=== PATIENT | female | born 1975 | race Asian ===

== ENCOUNTER 2016-09-14 09:09 | Emergency (ER) | payer OTHER ==
[~2016-09-14] VITALS: Ht 162.6 cm; Wt 61.2 kg
[2016-09-14 09:18] VITALS: BP 105/69
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
[2016-09-14] MEDS ORDERED: DOXYCYCLINE HY100 M4 PO (09:51)
[2016-09-14] MEDS ORDERED: BROMFED DM COU118 M1 PO (09:51)
[2016-09-14] MEDS ORDERED: PROVENTIL HFA6.7 GM INH (09:51)
[2016-09-14] MEDS ORDERED: DELTASONE20 MG PO (09:51)
== END 2016-09-14 10:28 ==
LOC: ERH 09:09
DX: J40 Bronchitis, not specified as acute or chronic (principal); F17.210 Nicotine dependence, cigarettes, uncomplicated
CPT/HCPCS: 1263

== ENCOUNTER 2016-09-24 16:05 | Emergency (ER) | payer OTHER ==
[~2016-09-24] VITALS: Ht 162.6 cm; Wt 53.5 kg
[~2016-09-24 16:05] MED LIST: BROMFED DM COU118 M1 PO; DELTASONE20 MG PO; DOXYCYCLINE HY100 M4 PO; PROVENTIL HFA6.7 GM INH
[2016-09-24 16:08] VITALS: BP 114/82
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
[2016-09-24] MEDS ORDERED: GABAPENTIN300 M2 PO (16:42)
[2016-09-24] MEDS ORDERED: BENZONATATE100 M1 PO (16:43)
[2016-09-24] MEDS ORDERED: TRIAMCINOLONE A15 G4 TOP (16:43)
[2016-09-24] MEDS ORDERED: VITAMIN B COMP1 EACH PO (16:43)
[2016-09-24] MEDS ORDERED: PANTOPRAZOLE SO20 M1 PO (16:43)
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
== END 2016-09-24 18:03 ==
LOC: ERH 16:05
DX: S09.90XA Unspecified injury of head, initial encounter (principal); S80.01XA Contusion of right knee, initial encounter; S05.12XA Contusion of eyeball and orbital tissues, left eye, initial encounter; Y04.8XXA Assault by other bodily force, initial encounter
CPT/HCPCS: 73562-RT; 81025

== ENCOUNTER 2018-01-24 10:53 | Emergency (ER) | payer OTHER ==
[~2018-01-24] VITALS: Ht 162.6 cm; Wt 54.4 kg
[~2018-01-24 10:53] MED LIST changes: +BENTYL10 M1 PO; +BENZONATATE100 M1 PO; +GABAPENTIN300 M2 PO; +PANTOPRAZOLE SO20 M1 PO; +TRIAMCINOLONE A15 G4 TOP; +VITAMIN B COMP1 EACH PO; +ZOFRAN ODT4 M1 SL
[2018-01-24 10:56] VITALS: BP 113/71
[2018-01-24] MEDS ORDERED: ERYTHROMYCIN1 GM OPH (11:44)
--- NOTE | 2018-01-24 11:44 | ED GENERAL ADULT ---
History of Present Illness General Chief Complaint: Eye Problems Stated Complaint: LEFT EYE STY? "WANT TO MAKE SURE ITS NOT PINK EYE" Source: patient Exam Limitations: no limitations Vital Signs & Intake/Output Vital Signs & Intake/Output Vital Signs Date Time Temp Pulse Resp B/P B/P Pulse O2 O2 Flow FiO2 Mean Ox Delivery Rate 01/24 1134 98 Room Air 01/24 1056 97.5 86 15 113/71 97 Room Air Room Air Allergies Coded Allergies: No Known Allergies (01/24/18) Reconcile Medications Benzonatate 100 MG CAPSULE 1 CAP PO AD COUGH (Reported) Dicyclomine Hydrochloride (Bentyl) 10 MG CAPSULE 1 CAP PO TID PAIN Erythromycin Base (Erythromycin) 5 MG/GRAM (0.5 %) OINT...G. 1 LUCA OPH TID conjunctivis apply 1 cm ribbon into the lower conjunctival sac Gabapentin 300 MG CAPSULE 1 CAP PO TID MOOD/NERVE PAIN (Reported) Ondansetron (Zofran Odt) 4 MG TAB.RAPDIS 1 TAB SL TID PRN NAUSEA Pantoprazole Sodium 20 MG TABLET.DR 1 TAB PO DAILY GI (Reported) Triamcinolone Acetonide 0.5 % OINT...G. 1 LUCA TOP AD SKIN (Reported) apply to affected area(s) Vitamin B Complex 1 EACH CAPSULE 1 CAP PO DAILY SUPPLEMENT (Reported) Triage Note: PT TO ED FOR STYE TO LEFT EYE AND DRAINAGE THIS MORNING. Triage Nurses Notes Reviewed? yes : No Patient currently breastfeeds: No HPI: This is a 43-year-old female with history of EtOH abuse, nephrolithiasis, asthma , presenting to the emergency department with pain to her left upper eyelid. Symptoms started on Tuesday; awoke this morning w irritation and swelling to the area of her left superior medial eyelid and her eyes were crusted shut; she complains of no vision changes; denies fever/chills/cough/dizziness/headache; no throat pain. No history of trauma. Denies any sick contacts. (Lars Brown MD) Past History Travel History Traveled to [place] past 21 day No Medical History Any Pertinent Medical History? see below for history Neurological: NONE EENT: NONE Cardiovascular: NONE Respiratory: asthma Gastrointestinal: NONE Hepatic: NONE Renal: KIDNEY STONES X 2 Musculoskeletal: NONE Psychiatric: NONE Endocrine: NONE Blood Disorders: NONE Cancer(s): NONE ASSEMBLER FITTER/Reproductive: NONE Surgical History Surgical History: non-contributory Psychosocial History What is your primary language Italian Tobacco Use: Current Daily Use Daily Tobacco Use Amount/Type: => 5 Cigarettes daily ETOH Use: alcoholic Illicit Drug Use: denies illicit drug use Family History Hx Contributory? No (Lars Brown MD) Review of Systems Review of Systems Constitutional: Reports: no symptoms. EENTM: Reports: see HPI. Respiratory: Reports: no symptoms. Cardiovascular: Reports: no symptoms. GI: Reports: no symptoms. Genitourinary: Reports: no symptoms. Musculoskeletal: Reports: no symptoms. Skin: Reports: no symptoms. Neurological/Psychological: Reports: no symptoms. Hematologic/Endocrine: Reports: no symptoms. Immunologic/Allergic: Reports: no symptoms. (Lars Brown MD) Physical Exam Physical Exam General Appearance: well developed/nourished, alert, awake, comfortable Head: atraumatic, normal appearance Eyes: Left: lid inflammation. Bilateral: normal appearance, PERRL, EOMI. Ears, Nose, Throat: normal pharynx Neck: normal inspection, supple, full range of motion Respiratory: normal breath sounds, chest non-tender, no respiratory distress Cardiovascular: regular rate/rhythm, normal peripheral pulses Gastrointestinal: soft, non-tender Rectal: deferred Back: normal inspection, normal range of motion Extremities: normal inspection, normal capillary refill, normal range of motion, no edema Neurologic/Psych: no motor/sensory deficits, awake, alert, oriented x 3, normal gait, normal mood/affect Skin: intact, normal color, warm/dry Core Measures ACS in differential dx? No CVA/TIA Diagnosis: No Sepsis Present: No Sepsis Focused Exam Completed? No (Lars Brown MD) Progress Differential Diagnoses I considered the following diagnoses in my evaluation of the patient: Clinically suspect stye in this patient. Could be early chalazion. Doubt foreign body, severe conjunctivitis. Low suspicion for septal or preseptal cellulitis. Doubt orbital cellulitis. Plan of Care: Plan for topical antibiotic, warm compress, follow-up with primary doctor. Patient well-appearing at discharge, provided return precautions and follow-up instructions. Initial ED EKG: none (Lars Brown MD) Departure Departure Time of Disposition: 1139 Disposition: HOME OR SELF CARE Condition: Stable Clinical Impression Primary Impression: Hordeolum of left upper eyelid Referrals: Patient Has No Primary Care Dr (PCP/Family) Additional Instructions: Thank you for coming to [facility]. Please use the antibiotic as described. Please use warm compress 3-4 times per day as we discussed. Please return to the emergency department if he develop any fever, chills, change in vision, pain or severe headache, or any other concerning symptoms. Departure Forms: Customer Survey General Discharge Information Prescriptions: Current Visit Scripts Erythromycin Base (Erythromycin) 1 LUCA OPH TID #30 GM apply 1 cm ribbon into the lower conjunctival sac (Lars Brown MD) Resident Co-Sign Statement Statement: ED Attending supervision documentation- [] I saw and evaluated the patient. I have also reviewed all the pertinent lab results and diagnostic results. I agree with the findings and the plan of care as documented in the Resident's documentation. [x] I have reviewed the ED Record and agree with the Resident's documentation. [] Additions or exceptions (if any) to the Resident's note and plan are summarized below: [] (Gary Ferrer DO) Critical Care Note Critical Care Note Critical Care Time: non-applicable (Lars Brown MD)
== END 2018-01-24 11:56 ==
LOC: ERH 10:53
DX: H00.014 Hordeolum externum left upper eyelid (principal)